=== PATIENT | female | born 1995 | race Hispanic/Latino ===

== ENCOUNTER 2017-10-20 20:30 | Emergency (ER) | payer OTHER ==
[2017-10-20 20:48] VITALS: BP 151/92; PULSE 95; RESP 16; TEMP 98.4; O2SAT 100
--- NOTE | 2017-10-20 20:54 | ED PDOC ---
HPI: General Adult Time Seen by Provider: 10/20/17 20:54 Chief Complaint (Nursing): Abnormal Skin Integrity Chief Complaint (Provider): itchy rash History Per: Patient Additional Complaint(s): 21 y/o female presents with itchy, scaling rash noted to torso for 2 weeks. No fever, chills, pain or drainage noted. Patient denies any changes in lotions, soaps, detergents, perfumes. She denies any consumption of new medications or vitamins or supplements. No dietary changes. No recent travel. No meds taken for symptomatic relief. PMD: none Past Medical History Reviewed: Historical Data, Nursing Documentation, Vital Signs Vital Signs: Last Vital Signs Temp 98.4 F 10/20/17 20:46 Pulse 95 H 10/20/17 20:46 Resp 16 10/20/17 20:46 BP 151/92 H 10/20/17 20:46 Pulse Ox 100 10/20/17 21:03 - Medical History PMH: No Chronic Diseases - Surgical History Surgical History: Tonsillectomy Other surgeries: scoliosis surgery - Family History Family History: States: No Known Family Hx - Living Arrangements Living Arrangements: With Friends/Others - Social History Current smoker - smoking cessation education provided: No Alcohol: None Drugs: Denies - Home Medications Home Medications: Ambulatory Orders Medication Instructions Recorded Calamine/Pramoxine [Caladryl] 180 ml EXT DAILY #1 bottle 12/19/15 DiphenhydrAMINE [Benadryl] 25 mg PO Q6 #30 cap 12/19/15 Prednisone 20 mg PO BID #8 tablet 12/19/15 Spironolactone [Aldactone] mg PO BID 12/19/15 - Allergies Allergies/Adverse Reactions: Allergies Allergy/AdvReac Type Severity Reaction Status Date / Time No Known Allergies Allergy Verified 10/20/17 20:48 Review of Systems ROS Statement: Except As Marked, All Systems Reviewed And Found Negative Constitutional: Negative for: Fever, Chills Respiratory: Negative for: Cough, Shortness of Breath Gastrointestinal: Negative for: Nausea, Vomiting Skin: Positive for: Rash Neurological: Negative for: Headache, Dizziness Physical Exam - Reviewed Nursing Documentation Reviewed: Yes Vital Signs Reviewed: Yes - Physical Exam Appears: Positive for: Well, Non-toxic, No Acute Distress Skin: Positive for: Rash (Scattered urticarial lesions and scaly plaque lesions noted to dorsal and bilateral upper extremities) Eye Exam: Positive for: Normal appearance. Negative for: Periorbital swelling, Periorbital tenderness Neck: Positive for: Normal Cardiovascular/Chest: Positive for: Regular Rate, Rhythm Respiratory: Positive for: Normal Breath Sounds. Negative for: Wheezing, Respiratory Distress Extremity: Positive for: Normal ROM. Negative for: Pedal Edema Neurologic/Psych: Positive for: Alert, Oriented - Laboratory Results Urine POC: Negative - ECG O2 Sat by Pulse Oximetry: 100 Pulse Ox Interpretation: Normal Medical Decision Making Medical Decision Making: Impression: Allergic urticaria Plan: test PO prednisone PO benadryl Patient given course of prednisone. Advised [id number] Benadryl for itching as needed. Patient was instructed to follow up with property consultant. Disposition - Clinical Impression Clinical Impression: Allergic urticaria - Patient ED Disposition Is Patient to be Admitted: No Counseled Patient/Family Regarding: Diagnosis, Need For Followup, Rx Given - Disposition Referrals: [facility] [Outside] Disposition: Routine/Home Disposition Time: 21:05 Condition: STABLE Additional Instructions: Take rx meds as directed along with 2 tablets Benadryl [id number] every 6 hours for itch relief. Follow up with property consultant for any persistent symptoms. Instructions: Dermatitis, Hives, Skin Rash Forms: [facility] ([place])
== END 2017-10-20 22:43 | disposition home or self-care (01) ==
LOC: H.ER 20:30
DX: T78.40XA Allergy, unspecified, initial encounter (principal)